=== PATIENT | female | born 1970 | race Caucasian/White ===

== ENCOUNTER 2017-09-02 10:46 | Emergency (ER) | payer BC, OTHER ==
[~2017-09-02] VITALS: Ht 162.6 cm; Wt 77.1 kg
[~2017-09-02 10:46] MED LIST: ST J PO
[2017-09-02 11:18] VITALS: BP 126/80
== END 2017-09-02 11:35 | disposition home or self-care (01) ==
LOC: ER 10:46
DX: G89.29 Other chronic pain (principal); M54.5 Low back pain; Z88.6 Allergy status to analgesic agent